=== PATIENT | female | born 1985 | race Caucasian/White ===

== ENCOUNTER 2018-11-17 14:40 | Emergency (ER) | payer BC, MEDICARE ==
[2018-11-17 15:54] VITALS: BP 119/70
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
== END 2018-11-17 16:21 | disposition left against medical advice (07) ==
LOC: UCCORT 14:40
DX: S39.81XA Other specified injuries of abdomen, initial encounter (principal); R07.9 Chest pain, unspecified; F17.210 Nicotine dependence, cigarettes, uncomplicated; V86.55XA Driver of 3- or 4- wheeled all-terrain vehicle (ATV) injured in nontraffic accident, initial encounter; Z79.899 Other long term (current) drug therapy; Z88.5 Allergy status to narcotic agent; Z88.8 Allergy status to other drugs, medicaments and biological substances
CPT/HCPCS: 99202; G0463